=== PATIENT | male | born 1945 | race Caucasian/White ===

== ENCOUNTER 2017-01-30 15:03 | Emergency (ER) | payer OTHER ==
[~2017-01-30 15:03] MED LIST: ALLOPURINOL300 MG PO; CELEBREX200 MG PO; DIGOXIN0.25 MG PO; FUROSEMIDE40 MG PO; LEVOTHYROXINE100 MCG PO; LIPITOR80 MG PO; METOPROLOL TART25 MG PO; PANTOPRAZOLE SO40 MG PO; QUINAPRIL HCL40 MG PO; XARELTO10 MG PO
--- NOTE | 2017-01-30 16:41 | DIAGNOSTIC IMAGING REPORT ---
PROCEDURE: XR HAND 3 OR 4 VIEWS - LEFT INDICATION: Table saw injury. TECHNIQUE: Four views. COMPARISON: None. 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 No evidence of a radiopaque foreign body. No other abnormalities. IMPRESSION: 1. 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
--- NOTE | 2017-01-30 19:38 | ED ORDER SUMMARY ---
..... Patient: DOMINGO MARADIAGA OrderSheet [facility] VisitID: [id number] [place] [address] 71y, M Registration Date/Time: 01/30/2017 ORDER SHEET Weight: 99.7 kg (stated) Allergies: No Known Drug Allergy GENERAL ORDERS: Hand 2V Left Urgent (15:43 01/30/2017 Cindy CHAVEZ) (Ack 15:52 IJurca ER Tech1) (Cancelled: Wrong Order16:02 IJurca ER Tech1) Hand 3 or 4V Left Urgent (16:01 01/30/2017 IJurca ER Tech1 written order Cindy CHAVEZ) (Ack 16:02 IJurca ER Tech1) (16:43 Kaelyn) EKG - ER Stat (16:45 01/30/2017 Cindy CHAVEZ) (Ack 16:49 IJurca ER Tech1) (16:58 PWeiler ER Tech1) MEDICATION ORDERS: Ttnpspn-Istddj-Jqwcs Pertussis IM 0.5 mL (per protocol) (15:35 01/30/2017 LSullivan R.N. verbal order read back to Cindy CHAVEZ) (15:36 LSullivan R.N.) IV FLUIDS: IV Saline Lock (15:19 01/30/2017 LSullivan R.N. verbal order read back to Cindy CHAVEZ) (15:20 LSullivan R.N.) Cefazolin IV 1 gm/50mL (NOW) (16:05 01/30/2017 Cindy CHAVEZ) (16:51 LSullivan R.N.) Cefazolin IV 1 gm/50mL (THIS IS A SECOND GRAM) (16:39 01/30/2017 Cindy CHAVEZ) (16:52 LSullivan R.N.) ORDER SHEET NOTES: [Electronically signed by Ellie Maza R.N. (00:17 01/31/2017)] [Electronically signed by Clyde Canales MD (22:17 02/01/2017)] [Electronically locked/signed by Ellie Maza R.N. (00:17 01/31/2017)]
--- NOTE | 2017-01-30 19:38 | ED CLINICAL REPORT ---
Clinical Report - Physicians/Mid Levels [facility] [address] [place] [place] [address] 01/30/2017 15:04 Patient: DOMINGO MARADIAGA Time Seen: 15:24. Arrived- By private vehicle. Historian- patient. HISTORY OF PRESENT ILLNESS Chief Complaint: Injury to the left hand and index finger. 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 ( Cut left hand on a table saw). Patient is experiencing severe pain. No other injury. REVIEW OF SYSTEMS The patient sustained a laceration. No swelling, tingling, numbness or weakness. PAST HISTORY PROBLEMS: Degenerative Joint Disease. Heart Disease. Gout. Cardiomyopathy. Atrial Fibrillation. CVA - Cerebrovascular Accident. Heart Failure. Heart Murmur. Mitral regurgitation. Hyperlipidemia. Pacemaker. ADDITIONAL SURGERIES: Nerve replant in left arm. Pacemaker. The patient's dominant hand is the left. Tetanus immunization status is unknown. SOCIAL HISTORY The patient lives with spouse. ADDITIONAL NOTES The nursing notes have been reviewed. PHYSICAL EXAM Vital Signs: 01/30/2017 15:12 BP: 103/67. HR: 80. RR: 18. O2 saturation: 92%. Pain level now: 9/10. CVS: Normal heart rate and rhythm. Heart sounds normal. Respiratory: No respiratory distress. Breath sounds normal. Abdomen: No visible injury. Soft and nontender. Extremities: Left index finger: laceration of the dorsal aspect, middle phalanx and distal phalanx. Neurovascular intact distally. (Avulsion of skin of the dorsum of the L index finger beginning at the PIPJ and completely avulsing the nail plate and bed. The volar flap is pink with good sensation prior to a bupivocaine block. Flex and ext at the PIPJ is normal). Extremities otherwise negative. LABS, X-RAYS, AND EKG Lt Hand X-ray: (Near complete aputation of the distal phalynx.). The X-rays were independently viewed by me. PROGRESS AND PROCEDURES Digital Nerve Block - Finger: Digital nerve block performed on the left index finger. Web space, dorsal and volar approach utilized. Landmarks identified. Skin prepped. Total volume of 2 mL 2% Lidocaine infiltrated via multiple punctures using a 25-gauge needle. No complications encountered. Excellent anesthesia achieved. Course of Care: 16:33 01/30/17. Discussed with patrick Oliver physician [facility] 17:01 01/30/17. Family requests care at [place] due to his prior heart problems. We have offered care here but respect the families wishes. Transfer RN Jairo at [facility] contacted. 18:15 01/30/17. Patient is actually a / [place] patient and Dr Nelson of transfer center was contacted. Dr Cadet at [facility] examined the patient and X-ray and discovered that there was insufficient soft tissue to close the dorsal defect without a graft. Dr Nelson has arraigned for a [place] hand surgeon to see him in [place]. Dr Mckeon In the ED he received A bupivacaine 0.5% without EPi digital block with excellent relief. Cefazolin 2 gm IV. TDAP Saline gauze dressing. Disposition: Transferred. by pov. CLINICAL IMPRESSION PARTIAL AMPUTATION OF LEFT INDEX FINGER. INSTRUCTIONS (DO NOT EAT OR DRINK ANYTHING GO DIRECTLY TO [facility] IN [place] [address] [facility] IT IS RIGHT NEXT TO [facility] DR MCKEON WILL BE CALLED WHEN YOU ARRIVE.). (Electronically signed by Clyde Canales MD 02/01/2017 22:17)
--- NOTE | 2017-01-30 19:38 | ED NURSING NOTES ---
Clinical Report - Nurses [facility] [address] [place] [address] 01/30/2017 15:04 Patient: DOMINGO MARADIAGA TRIAGE Triage time 15:12. Acuity: LEVEL 3. Chief Complaint: INJURY TO LEFT HAND. INJURY TO THE LEFT INDEX FINGER WITH PARTIAL AMPUTATION. Alert. No acute distress. --15:18 Rosalind Owen R.N. 15:12 01/30/17. BP: 103/67. HR: 80. RR: 18. O2 saturation: 92%. Pain level now: 05/16. --15:18 Rosalind Owen R.N. Weight: 99.7 kg stated. Height/Length: 71 inches Per Patient. BMI: 30.7. --15:15 Rosalind Owen R.N. Medications Allopurinol Oral (Tablet 300 mg) 1 tablet, daily. CeleBREX Oral (Capsule 200 mg) 1 capsule, daily. --15:14 Rosalind Owen R.N. Flomax Oral (Capsule 0.4 mg) 1 capsule, daily. Furosemide Oral (Tablet 40 mg) 1 tablet, daily. Levothyroxine Sodium Oral (Tablet 100 mcg) 1 tablet, daily. Lipitor Oral (Tablet 80 mg) 1 tablet, at bedtime. Metoprolol Tartrate Oral (Tablet 100 mg) 1 tablet, 2xdaily. Pantoprazole Sodium Oral (Tablet Delayed Release 40 mg) 1 tablet, daily. Quinapril HCl Oral (Tablet 40 mg) 1/2 tablet, daily. Xarelto Oral (Tablet 20 mg). --15:14 Rosalind Owen R.N. Allergies No Known Drug Allergy. --15:14 Rosalind Owen R.N. History Arrived by EMS. Historian: patient. Accompanied by spouse. Primary physician (Ozzy). ( Pt cut finger accidentally with a table saw). PAST MEDICAL HX: Tetanus status: unknown. SOCIAL HX: Former smoker, end date 1988. No alcohol use or drug use. NUTRITIONAL RISK ASSESSMENT: The nutritional risk assessment revealed no deficiencies. FUNCTIONAL ASSESSMENT: Functional assessment: no impairments noted. LEARNING NEEDS ASSESSMENT: The learning needs assessment revealed no barriers. --15:18 Rosalind Owen R.N. PROBLEMS: Degenerative Joint Disease. Heart Disease. Gout. Cardiomyopathy. Atrial Fibrillation. CVA - Cerebrovascular Accident. Heart Failure. Heart Murmur. Mitral regurgitation. Hyperlipidemia. Pacemaker. --15:15 Rosalind Owen R.N. ADDITIONAL SURGERIES: Nerve replant in left arm. Pacemaker. --15:15 Rosalind Owen R.N. Interventions ID band on patient. To room. --15:18 Rosalind Owen R.N. PHYSICAL ASSESSMENT 15:40. EXTREMITIES: Tip of left thumb: superficial laceration. Left index finger. Tip of left index finger: laceration with bleeding; completely avulsed nail; tip amputation (full thickness). Tip of left middle finger: laceration. --15:53 Rosalind Owen R.N. NURSING PROGRESS NOTES 15:20 01/30/2017 Site #1 started via IV in the right wrist with an 20g angiocath, with aseptic technique and good blood return; one attempt. Blood drawn: rainbow set. Labeled in the presence of the patient and sent to the lab. Saline lock flushed with 10 mL saline. --15:20 Rosalind Owen R.N. 15:36 01/30/2017 SNNDZIR-[id number]-YJDYT PERTUSSIS IM 0.5 mL given. (Lot#: [id number], expiration date: 01/14/2019, Paint Striping Machine Operator: sanofi pasteur). Given in the left deltoid. Vaccine information statement provided to the patient. --15:36 Rosalind Owen R.N. 15:36. ( Lac cart and Bupivicaine 0.5% vial placed in room for MD to give a nerve block for pain). --15:51 Rosalind Owen R.N. 16:26 01/30/2017 Started 1 gm of Cefazolin (CeFAZolin Sodium) IVPB in bag #1 50 mL; at 150 mL/hr over 20 minute(s) via site #1 --16:51 Rosalind Owen R.N. 16:52 01/30/2017 Started 1 gm of Cefazolin (CeFAZolin Sodium) IVPB in bag #1 50 mL; at 150 mL/hr over 20 minute(s) via site #1 via IV pump. Allergies verified and confirmed 5 rights. --16:52 Rosalind Owen R.N. EKG time: (1655). EKG was ordered, performed by a tech and shown to the ED physician. --16:59 Kirit Wylie, ER Tech1 17:00 01/30/2017 Cefazolin IVPB Discontinued: bag #1 infused. Total amount infused: 50 mL. IV patency established. IV site checked: no pain, redness, or swelling. IV flushed thoroughly. --17:31 Andrew Fenton R.N. 17:00 01/30/2017 Cefazolin IVPB Discontinued: bag #1 infused. Total amount infused: 50 mL. IV patency established. IV site checked: no pain, redness, or swelling. IV flushed thoroughly. --17:34 Andrew Fenton R.N. 18:00 01/30/17. BP: 119/65. HR: 74. RR: 16. O2 saturation: 95% on room air. Temp: 98.3 F (oral). --18:19 Andrew Fenton R.N. Care transferred and report received (SAW Boyer). --19:06 Ellie Maza R.N. 19:11 01/30/17. GENERAL / NEURO / PSYCH: Alert. Oriented X 4. RESPIRATORY: No respiratory distress. EXTREMITIES: Neuro-vascular status intact to the extremity. SKIN: Skin is warm. ( Patient visiting with friend, laughing, waiting to be transferred to [facility]). --19:11 Ellie Maza R.N. 19:09 01/30/17. BP: 117/80 (regular adult cuff) taken on the left arm. HR: 74. RR: 18. O2 saturation: 98% on room air. Pain level now: 03/15. --19:11 Ellie Maza R.N. DISPOSITION / DISCHARGE 19:30 01/30/2017 Site #1 removed upon discharge. Bandaid applied. --00:14 Ellie Maza R.N. late entry - 19:30 01/31/17. Departure time: 19:45 Jan 31 2017. Condition at departure: unchanged. No learning barriers present. Discharge instructions provided and reviewed with the patient and spouse. Patient verbalized understanding. Written instructions provided in Chinese. ( Patient will go to [facility] because there is a hand specialist there, he refused to be transported via ambulance, patients friend and will drive him, they know where the hospital is, they know the benefits and the precautions, hand was wrapped up with 4x4 gauze and taped in place, he was informed to get attention right away if bleeding saturates 4x4 gauze and does not stop bleeding, bleeding is stopped at this point). The patient was accompanied by spouse and discharged ([facility]). He left the Emergency Department ambulatory and via private vehicle. Road Traffic Controller driving (friend). --00:16 Ellie Maza R.N. 19:30 01/30/17. BP: 118/68 (regular adult cuff) taken on the left arm. HR: 70. RR: 16. O2 saturation: 98% on room air. Temp: 98.6 F (oral). Pain level now: 02/13. --00:16 Ellie Maza R.N. Locked/Released at 01/31/2017 0:17 by Ellie Maza R.N.
--- NOTE | 2017-01-30 19:38 | ED ORDER SUMMARY ---
..... Patient: DOMINGO MARADIAGA OrderSheet [facility] VisitID: [id number] [place] [address] 71y, M Registration Date/Time: 01/30/2017 ORDER SHEET Weight: 99.7 kg (stated) Allergies: No Known Drug Allergy GENERAL ORDERS: Hand 2V Left Urgent (15:43 01/30/2017 Cindy CHAVEZ) (Ack 15:52 IJurca ER Tech1) (Cancelled: Wrong Order16:02 IJurca ER Tech1) Hand 3 or 4V Left Urgent (16:01 01/30/2017 IJurca ER Tech1 written order Cindy CHAVEZ) (Ack 16:02 IJurca ER Tech1) (16:43 Kaelyn) EKG - ER Stat (16:45 01/30/2017 Cindy CHAVEZ) (Ack 16:49 IJurca ER Tech1) (16:58 PWeiler ER Tech1) MEDICATION ORDERS: Jlvxmjw-Ryvxhu-Aqthp Pertussis IM 0.5 mL (per protocol) (15:35 01/30/2017 LSullivan R.N. verbal order read back to Cindy CHAVEZ) (15:36 LSullivan R.N.) IV FLUIDS: IV Saline Lock (15:19 01/30/2017 LSullivan R.N. verbal order read back to Cindy CHAVEZ) (15:20 LSullivan R.N.) Cefazolin IV 1 gm/50mL (NOW) (16:05 01/30/2017 Cindy CHAVEZ) (16:51 LSullivan R.N.) Cefazolin IV 1 gm/50mL (THIS IS A SECOND GRAM) (16:39 01/30/2017 iCndy CHAVEZ) (16:52 LSullivan R.N.) ORDER SHEET NOTES: [Electronically signed by Ellie Maza R.N. (00:17 01/31/2017)] [Electronically signed by Clyde Canales MD (22:17 02/01/2017)] [Electronically locked/signed by Ellie Maza R.N. (00:17 01/31/2017)]
--- NOTE | 2017-01-30 19:38 | ED CLINICAL REPORT ---
Clinical Report - Physicians/Mid Levels [facility] [address] [place] [address] 01/30/2017 15:04 Patient: ODMINGO MARADIAGA Time Seen: 15:24. Arrived- By private vehicle. Historian- patient. HISTORY OF PRESENT ILLNESS Chief Complaint: Injury to the left hand and index finger. 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 ( Cut left hand on a table saw). Patient is experiencing severe pain. No other injury. REVIEW OF SYSTEMS The patient sustained a laceration. No swelling, tingling, numbness or weakness. PAST HISTORY PROBLEMS: Degenerative Joint Disease. Heart Disease. Gout. Cardiomyopathy. Atrial Fibrillation. CVA - Cerebrovascular Accident. Heart Failure. Heart Murmur. Mitral regurgitation. Hyperlipidemia. Pacemaker. ADDITIONAL SURGERIES: Nerve replant in left arm. Pacemaker. The patient's dominant hand is the left. Tetanus immunization status is unknown. SOCIAL HISTORY The patient lives with spouse. ADDITIONAL NOTES The nursing notes have been reviewed. PHYSICAL EXAM Vital Signs: 01/30/2017 15:12 BP: 103/67. HR: 80. RR: 18. O2 saturation: 92%. Pain level now: 9/10. CVS: Normal heart rate and rhythm. Heart sounds normal. Respiratory: No respiratory distress. Breath sounds normal. Abdomen: No visible injury. Soft and nontender. Extremities: Left index finger: laceration of the dorsal aspect, middle phalanx and distal phalanx. Neurovascular intact distally. (Avulsion of skin of the dorsum of the L index finger beginning at the PIPJ and completely avulsing the nail plate and bed. The volar flap is pink with good sensation prior to a bupivocaine block. Flex and ext at the PIPJ is normal). Extremities otherwise negative. LABS, X-RAYS, AND EKG Lt Hand X-ray: (Near complete aputation of the distal phalynx.). The X-rays were independently viewed by me. PROGRESS AND PROCEDURES Digital Nerve Block - Finger: Digital nerve block performed on the left index finger. Web space, dorsal and volar approach utilized. Landmarks identified. Skin prepped. Total volume of 2 mL 2% Lidocaine infiltrated via multiple punctures using a 25-gauge needle. No complications encountered. Excellent anesthesia achieved. Course of Care: 16:33 01/30/17. Discussed with patrick Oliver physician [facility] 17:01 01/30/17. Family requests care at [place] due to his prior heart problems. We have offered care here but respect the families wishes. Transfer RN Jairo at [facility] contacted. 18:15 01/30/17. Patient is actually a / [place] patient and Dr Nelson of transfer center was contacted. Dr Cadet at [facility] examined the patient and X-ray and discovered that there was insufficient soft tissue to close the dorsal defect without a graft. Dr Nelson has arraigned for a [place] hand surgeon to see him in [place]. Dr Mckeon In the ED he received A bupivacaine 0.5% without EPi digital block with excellent relief. Cefazolin 2 gm IV. TDAP Saline gauze dressing. Disposition: Transferred. by pov. CLINICAL IMPRESSION PARTIAL AMPUTATION OF LEFT INDEX FINGER. INSTRUCTIONS (DO NOT EAT OR DRINK ANYTHING GO DIRECTLY TO [facility] IN [place] [address] [facility] IT IS RIGHT NEXT TO [facility] DR MCKEON WILL BE CALLED WHEN YOU ARRIVE.). (Electronically signed by Clyde Canales MD 02/01/2017 22:17)
--- NOTE | 2017-01-30 19:38 | ED NURSING NOTES ---
Clinical Report - Nurses [facility] [address] [place] [address] 01/30/2017 15:04 Patient: DOMINGO MARADIAGA TRIAGE Triage time 15:12. Acuity: LEVEL 3. Chief Complaint: INJURY TO LEFT HAND. INJURY TO THE LEFT INDEX FINGER WITH PARTIAL AMPUTATION. Alert. No acute distress. --15:18 Rosalind Owen R.N. 15:12 01/30/17. BP: 103/67. HR: 80. RR: 18. O2 saturation: 92%. Pain level now: 05/16. --15:18 Rosalind Owen R.N. Weight: 99.7 kg stated. Height/Length: 71 inches Per Patient. BMI: 30.7. --15:15 Rosalind Owen R.N. Medications Allopurinol Oral (Tablet 300 mg) 1 tablet, daily. CeleBREX Oral (Capsule 200 mg) 1 capsule, daily. --15:14 Rosalind Owen R.N. Flomax Oral (Capsule 0.4 mg) 1 capsule, daily. Furosemide Oral (Tablet 40 mg) 1 tablet, daily. Levothyroxine Sodium Oral (Tablet 100 mcg) 1 tablet, daily. Lipitor Oral (Tablet 80 mg) 1 tablet, at bedtime. Metoprolol Tartrate Oral (Tablet 100 mg) 1 tablet, 2xdaily. Pantoprazole Sodium Oral (Tablet Delayed Release 40 mg) 1 tablet, daily. Quinapril HCl Oral (Tablet 40 mg) 1/2 tablet, daily. Xarelto Oral (Tablet 20 mg). --15:14 Rosalind Owen R.N. Allergies No Known Drug Allergy. --15:14 Rosalind Owen R.N. History Arrived by EMS. Historian: patient. Accompanied by spouse. Primary physician (Ozzy). ( Pt cut finger accidentally with a table saw). PAST MEDICAL HX: Tetanus status: unknown. SOCIAL HX: Former smoker, end date 1988. No alcohol use or drug use. NUTRITIONAL RISK ASSESSMENT: The nutritional risk assessment revealed no deficiencies. FUNCTIONAL ASSESSMENT: Functional assessment: no impairments noted. LEARNING NEEDS ASSESSMENT: The learning needs assessment revealed no barriers. --15:18 Rosalind Owen R.N. PROBLEMS: Degenerative Joint Disease. Heart Disease. Gout. Cardiomyopathy. Atrial Fibrillation. CVA - Cerebrovascular Accident. Heart Failure. Heart Murmur. Mitral regurgitation. Hyperlipidemia. Pacemaker. --15:15 Rosalind Owen R.N. ADDITIONAL SURGERIES: Nerve replant in left arm. Pacemaker. --15:15 Rosalind Owen R.N. Interventions ID band on patient. To room. --15:18 Rosalind Owen R.N. PHYSICAL ASSESSMENT 15:40. EXTREMITIES: Tip of left thumb: superficial laceration. Left index finger. Tip of left index finger: laceration with bleeding; completely avulsed nail; tip amputation (full thickness). Tip of left middle finger: laceration. --15:53 Rosalind Owen R.N. NURSING PROGRESS NOTES 15:20 01/30/2017 Site #1 started via IV in the right wrist with an 20g angiocath, with aseptic technique and good blood return; one attempt. Blood drawn: rainbow set. Labeled in the presence of the patient and sent to the lab. Saline lock flushed with 10 mL saline. --15:20 Rosalind Owen R.N. 15:36 01/30/2017 UWRCHPY-SGHBXH-VZSNC PERTUSSIS IM 0.5 mL given. (Lot#: [id number], expiration date: 01/14/2019, Branch Operations Specialist: sanofi pasteur). Given in the left deltoid. Vaccine information statement provided to the patient. --15:36 Rosalind Owen R.N. 15:36. ( Lac cart and Bupivicaine 0.5% vial placed in room for MD to give a nerve block for pain). --15:51 Rosalind Owen R.N. 16:26 01/30/2017 Started 1 gm of Cefazolin (CeFAZolin Sodium) IVPB in bag #1 50 mL; at 150 mL/hr over 20 minute(s) via site #1 --16:51 Rosalind Owen R.N. 16:52 01/30/2017 Started 1 gm of Cefazolin (CeFAZolin Sodium) IVPB in bag #1 50 mL; at 150 mL/hr over 20 minute(s) via site #1 via IV pump. Allergies verified and confirmed 5 rights. --16:52 Rosalind Owen R.N. EKG time: (1655). EKG was ordered, performed by a tech and shown to the ED physician. --16:59 Kirit Wylie, ER Tech1 17:00 01/30/2017 Cefazolin IVPB Discontinued: bag #1 infused. Total amount infused: 50 mL. IV patency established. IV site checked: no pain, redness, or swelling. IV flushed thoroughly. --17:31 Andrew Fenton R.N. 17:00 01/30/2017 Cefazolin IVPB Discontinued: bag #1 infused. Total amount infused: 50 mL. IV patency established. IV site checked: no pain, redness, or swelling. IV flushed thoroughly. --17:34 Andrew Fenton R.N. 18:00 01/30/17. BP: 119/65. HR: 74. RR: 16. O2 saturation: 95% on room air. Temp: 98.3 F (oral). --18:19 Andrew Fenton R.N. Care transferred and report received (SAW Boyer). --19:06 Ellie Maza R.N. 19:11 01/30/17. GENERAL / NEURO / PSYCH: Alert. Oriented X 4. RESPIRATORY: No respiratory distress. EXTREMITIES: Neuro-vascular status intact to the extremity. SKIN: Skin is warm. ( Patient visiting with friend, laughing, waiting to be transferred to [facility]). --19:11 Ellie Maza R.N. 19:09 01/30/17. BP: 117/80 (regular adult cuff) taken on the left arm. HR: 74. RR: 18. O2 saturation: 98% on room air. Pain level now: 03/15. --19:11 Ellie Maza R.N. DISPOSITION / DISCHARGE 19:30 01/30/2017 Site #1 removed upon discharge. Bandaid applied. --00:14 Ellie Maza R.N. late entry - 19:30 01/31/17. Departure time: 19:45 Jan 31 2017. Condition at departure: unchanged. No learning barriers present. Discharge instructions provided and reviewed with the patient and spouse. Patient verbalized understanding. Written instructions provided in [place]. ( Patient will go to [facility] because there is a hand specialist there, he refused to be transported via ambulance, patients friend and will drive him, they know where the hospital is, they know the benefits and the precautions, hand was wrapped up with 4x4 gauze and taped in place, he was informed to get attention right away if bleeding saturates 4x4 gauze and does not stop bleeding, bleeding is stopped at this point). The patient was accompanied by spouse and discharged ([facility]). He left the Emergency Department ambulatory and via private vehicle. Retail Manager In Training driving (friend). --00:16 Ellie Maza R.N. 19:30 01/30/17. BP: 118/68 (regular adult cuff) taken on the left arm. HR: 70. RR: 16. O2 saturation: 98% on room air. Temp: 98.6 F (oral). Pain level now: 02/13. --00:16 Ellie Maza R.N. Locked/Released at 01/31/2017 0:17 by Ellie Maza R.N.
--- NOTE | 2017-01-30 22:33 | CONSULTATION REPORT ---
DATE OF CONSULTATION: 01/30/2017 CHIEF COMPLAINT: 1. Amputation of the left pointer finger HISTORY OF PRESENT ILLNESS: This is an orthopedic consultation note performed in the emergency department on 01/30/2017. This 71-year-old right-handed man was working with a table saw at home when he cut through his pointer finger, starting at the dorsum of the finger just distal to the PIP joint, and the cut continued taking off 2/3 of the distal phalanx and leaving him with apparently vascularized volar skin that is about 2/3 of the length of the typical distal volar pad. When he came into our hospital, he was given tetanus toxoid and 2 grams of Ancef. I was called and came in thinking I would be repairing the essentially transverse amputation through the distal phalanx; but when I arrived, the physical examination was not consistent with a simple transverse injury. MEDICAL/SURGICAL HISTORY: He has a history of cardiac disease including atrial fibrillation and hypertension. He is maintained on Xarelto 20 mg daily. He had an AICD implanted after they treated him with medication for rapid heart rate. He has GERD (gastroesophageal reflux disease), treated with pantoprazole. He has had some elevation of his liver enzymes, but he denies any hepatitis A, B, or C. He has benign prostatic hypertrophy, treated with tamsulosin. Past surgical history includes tonsillectomy; left ulnar nerve transposition; right foot fracture-dislocation with laceration of the extensor tendons, which was repaired at age 22. It left him with inability to extend his toes. MEDICATIONS: 1. Allopurinol 300 mg daily. 2. Atorvastatin 80 mg daily. 3. Celecoxib 200 mg daily. 4. Furosemide 40 mg daily. 5. Levothyroxine 100 mcg daily. 6. Metoprolol 100 mg twice daily. 7. Pantoprazole 40 mg daily. 8. Quinapril 40 mg half tablet daily. 9. Tamsulosin 0.4 mg twice daily. 10. Xarelto 20 mg daily. ALLERGIES: 1. HE IS NOT ALLERGIC TO MEDICATION. PHYSICAL EXAMINATION: MUSCULOSKELETAL: My examination was limited to the patient's pointer finger on the left hand. This had a V-shaped loss of skin and bone. The pointy bottom of the V was located just distal to the PIP joint, and the loss of flesh and bone increased as it went distally. The distal two-thirds or 3/4 of the distal phalanx are missing and the distal phalanx is flexed forward 60 degrees because the extensor tendon was lacerated away, but the flexor is functioning on the little stump. The wound actually appears fairly clean. There is no visible grease. LAB/IMAGING: X-rays failed to show any metallic foreign body. IMPRESSION: 1. A 71-year-old man on Xarelto, who has not had excessive bleeding despite being on Xarelto. 2. With a history of hyperlipidemia. 3. Hypertension. 4. Tachyarrhythmia, requiring automatic implantable cardioverter defibrillator. 5. Atrial fibrillation. 6. 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 PLAN: As I said, based on the initial description from the emergency department doctor, I thought this was transverse going at the level of the distal phalanx and going deeper towards the volar surface as it went distal; but in fact, there is significant soft tissue loss over the distal end of the middle phalanx. Because this is the patient's pinch finger, the length of the middle phalanx that can be preserved was important, and I did not think my skills allowed me to get coverage. I did not want to start a procedure and then not be able to finish it and protect the patient. Therefore, we have requested transfer to a hospital with a hand surgeon. The emergency department doctor, Dr. Canales, has been following through with this.
--- NOTE | 2017-02-01 22:17 | ED MED RECONCILIATION SUMMARY ---
Patient: DOMINGO MARADIAGA Medication Reconciliation Report [facility] VisitID: [id number] [place] [address] 71y, M Registration Date/Time: 01/30/2017 Weight: 99.7 kg Height/Length: 71 in. BMI: 30.7 ALLERGIES: No Known Drug Allergy The patient's Home Medications are listed below: THE FOLLOWING MEDICATIONS NEED TO BE RECONCILED: Allopurinol Oral (300 mg) 1 tablet, daily CeleBREX Oral (200 mg) 1 capsule, daily Flomax Oral (0.4 mg) 1 capsule, daily Furosemide Oral (40 mg) 1 tablet, daily Levothyroxine Sodium Oral (100 mcg) 1 tablet, daily Lipitor Oral (80 mg) 1 tablet, at bedtime Metoprolol Tartrate Oral (100 mg) 1 tablet, 2xdaily Pantoprazole Sodium Oral (40 mg) 1 tablet, daily Quinapril HCl Oral (40 mg) 1/2 tablet, daily Xarelto Oral (20 mg) The source(s) of the original Home Medication information: Not obtained. The following Medications were given to the patient in the Emergency Department: [id number] PERTUSSIS [IM] IM 0.5 mL, administered: 01/30/2017 3:36:00 PM Cefazolin [IVPB] IVPB bolus 0, then 1 gm 150 mL/hr, administered: 01/30/2017 4:26:00 PM Cefazolin [IVPB] IVPB bolus 0, then 1 gm 150 mL/hr, administered: 01/30/2017 4:52:00 PM The following Medications were prescribed to the patient: None.
--- NOTE | 2017-02-01 22:17 | ED MAR SUMMARY ---
..... Medication Administration Record [facility] [address] [place] [address] Patient: DOMINGO MARADIAGA Visit ID: [id number] 71y, M Weight: 99.7 kg Height/Length: 71 in BMI: 30.7 ALLERGIES: No Known Drug Allergy Given 15:36 01/30/2017 Rosalind Owen R.N. Medication Administered: [id number] PERTUSSIS [IM], Dose: 0.5 mL IM. Medication Ordered: Qhuaxsd-Mfurau-Bdzbv Pertussis IM 0.5 mL (per protocol). Start 16:26 01/30/2017 Rosalind Owen R.N., Stop 17:00 01/30/2017 Andrew Fenton RNyaN. Medication Administered: CEFAZOLIN [IVPB] (CEFAZOLIN SODIUM), Dose: 1 gm IVPB over 20 minute(s), Rate: 150 mL/hr, Dispensed: 50 mL bag, Site: #1 right wrist. Medication Ordered: Cefazolin IV 1 gm/50mL (NOW). Start 16:52 01/30/2017 Rosalind Owen R.N., Stop 17:00 01/30/2017 Andrew Fenton, R.N. Medication Administered: CEFAZOLIN [IVPB] (CEFAZOLIN SODIUM), Dose: 1 gm IVPB over 20 minute(s), Rate: 150 mL/hr, Dispensed: 50 mL bag, Site: #1 right wrist. Medication Ordered: Cefazolin IV 1 gm/50mL (THIS IS A SECOND GRAM).
--- NOTE | 2017-02-01 22:17 | ED DISCHARGE INSTRUCTIONS ---
Patient: DOMINGO MARADIAGA Bobby General Instructions [facility] VisitID: [id number] [address] [place] [address] 71y, M Registration Date/Time: 01/30/2017 PARTIAL AMPUTATION OF LEFT INDEX FINGER. INSTRUCTIONS (DO NOT EAT OR DRINK ANYTHING GO DIRECTLY TO [facility] IN [address] [facility] IT [facility] [address] [facility] [address] MARIE WILL BE CALLED WHEN YOU ARRIVE.). (Electronically signed by Clyde Canales MD 02/01/2017 22:17)
--- NOTE | 2017-02-01 22:17 | ED MAR SUMMARY ---
..... Medication Administration Record [facility] [address] [place] [address] Patient: DOMINGO MARADIAGA Visit ID: [id number] 71y, M Weight: 99.7 kg Height/Length: 71 in BMI: 30.7 ALLERGIES: No Known Drug Allergy Given 15:36 01/30/2017 Rosalind Owen R.N. Medication Administered: [id number]-[id number]-[id number] PERTUSSIS [IM], Dose: 0.5 mL IM. Medication Ordered: Thsokfs-Dinryu-Fkfoo Pertussis IM 0.5 mL (per protocol). Start 16:26 01/30/2017 Rosalind Owen R.N., Stop 17:00 01/30/2017 Andrew Fenton RNyaN. Medication Administered: CEFAZOLIN [IVPB] (CEFAZOLIN SODIUM), Dose: 1 gm IVPB over 20 minute(s), Rate: 150 mL/hr, Dispensed: 50 mL bag, Site: #1 right wrist. Medication Ordered: Cefazolin IV 1 gm/50mL (NOW). Start 16:52 01/30/2017 Rosalind Owen R.N., Stop 17:00 01/30/2017 Andrew Fenton, R.N. Medication Administered: CEFAZOLIN [IVPB] (CEFAZOLIN SODIUM), Dose: 1 gm IVPB over 20 minute(s), Rate: 150 mL/hr, Dispensed: 50 mL bag, Site: #1 right wrist. Medication Ordered: Cefazolin IV 1 gm/50mL (THIS IS A SECOND GRAM).
--- NOTE | 2017-02-01 22:17 | ED MED RECONCILIATION SUMMARY ---
Patient: DOMINGO MARADIAGA Medication Reconciliation Report [facility] VisitID: [id number] [place] [address] 71y, M Registration Date/Time: 01/30/2017 Weight: 99.7 kg Height/Length: 71 in. BMI: 30.7 ALLERGIES: No Known Drug Allergy The patient's Home Medications are listed below: THE FOLLOWING MEDICATIONS NEED TO BE RECONCILED: Allopurinol Oral (300 mg) 1 tablet, daily CeleBREX Oral (200 mg) 1 capsule, daily Flomax Oral (0.4 mg) 1 capsule, daily Furosemide Oral (40 mg) 1 tablet, daily Levothyroxine Sodium Oral (100 mcg) 1 tablet, daily Lipitor Oral (80 mg) 1 tablet, at bedtime Metoprolol Tartrate Oral (100 mg) 1 tablet, 2xdaily Pantoprazole Sodium Oral (40 mg) 1 tablet, daily Quinapril HCl Oral (40 mg) 1/2 tablet, daily Xarelto Oral (20 mg) The source(s) of the original Home Medication information: Not obtained. The following Medications were given to the patient in the Emergency Department: [id number]-[id number] PERTUSSIS [IM] IM 0.5 mL, administered: 01/30/2017 3:36:00 PM Cefazolin [IVPB] IVPB bolus 0, then 1 gm 150 mL/hr, administered: 01/30/2017 4:26:00 PM Cefazolin [IVPB] IVPB bolus 0, then 1 gm 150 mL/hr, administered: 01/30/2017 4:52:00 PM The following Medications were prescribed to the patient: None.
--- NOTE | 2017-02-01 22:17 | ED DISCHARGE INSTRUCTIONS ---
Patient: DOMINGO MARADIAGA Bobby General Instructions [facility] VisitID: [id number] [address] [place] [address] 71y, M Registration Date/Time: 01/30/2017 PARTIAL AMPUTATION OF LEFT INDEX FINGER. INSTRUCTIONS (DO NOT EAT OR DRINK ANYTHING GO DIRECTLY TO [facility] IN [address] [facility] IT IS RIGHT NEXT TO [facility] [address] MARIE WILL BE CALLED WHEN YOU ARRIVE.). (Electronically signed by Clyde Canales MD 02/01/2017 22:17)
== END 2017-01-30 19:45 | disposition short-term general hospital (02) ==
LOC: ED SRH 15:03
DX: S68.621A Partial traumatic transphalangeal amputation of left index finger, initial encounter (principal); W31.2XXA Contact with powered woodworking and forming machines, initial encounter; Y93.9 Activity, unspecified; Y92.019 Unspecified place in single-family (private) house as the place of occurrence of the external cause; Y99.9 Unspecified external cause status; I42.9 Cardiomyopathy, unspecified; Z95.0 Presence of cardiac pacemaker; E78.5 Hyperlipidemia, unspecified; Z79.1 Long term (current) use of non-steroidal anti-inflammatories (NSAID); Z79.899 Other long term (current) drug therapy; Z87.891 Personal history of nicotine dependence